=== PATIENT | female | born 2000 | race African-American/Black ===

== ENCOUNTER 2023-05-20 16:38 | Emergency (ER) | payer MEDICAID, OTHER ==
[~2023-05-20] VITALS: Ht 162.6 cm; Wt 57.0 kg
[2023-05-20 16:48] VITALS: O2SAT 100
[2023-05-20] MEDS ORDERED: LIDOCAINE 5% PATCH TOP SCH (17:30)
[2023-05-20] MEDS ORDERED: ACETAMINOPHEN 325MG TABLET PO ONE (17:30)
[2023-05-20] MEDS ORDERED: LIDO700A15 TP (18:55)
[2023-05-20] MEDS ORDERED: TOPUD MT (18:55)
[2023-05-20 19:27] VITALS: BP 128/67; PULSE 92; RESP 18; TEMP 98.2
== END 2023-05-20 19:28 | disposition home or self-care (01) ==
LOC: ER 16:38
DX: S16.1XXA Strain of muscle, fascia and tendon at neck level, initial encounter (principal); S09.90XA Unspecified injury of head, initial encounter; W19.XXXA Unspecified fall, initial encounter; Y93.89 Activity, other specified; Y92.89 Other specified places as the place of occurrence of the external cause; Y99.8 Other external cause status
CPT/HCPCS: 81025; 99284